=== PATIENT | female | born 1940 | race Caucasian/White ===

== ENCOUNTER 2017-12-01 15:38 | Emergency (ER) | payer MEDICARE, OTHER, SELFPAY ==
[2017-12-01 15:48] VITALS: BP 135/86; PULSE 88; RESP 18; TEMP 36.8; O2SAT 96; BMI 15.4
--- NOTE | 2017-12-01 16:12 | XR_ITS ---
XR chest 2V HISTORY: Shortness of air ITS.REASON: SOA ORDERING PHYSICIAN: Doreen Ventura MD PATIENT AGE: 77 years COMPARISON: 11/12/2016 FINDINGS: The cardiomediastinal silhouette and pulmonary vascularity are within normal limits. COPD. Clips in the right chest wall.. No lobar consolidation or collapse. There is a bone plate over the proximal left humerus. There is wedging involving T7 unchanged from previous chest CT of 11/13/2016. IMPRESSION: COPD, no change with no acute finding
[2017-12-01 16:55] LABS: Lactic Acid 3.3 mmol/L (0.4-2.0)
--- NOTE | 2017-12-01 16:56 | [facility].EDGENADL ---
ED Disposition Clinical Impression: Anorexia, Grief reaction, Dehydration, UTI (urinary tract infection), Dementia Disposition: Home, Self-Care Condition on Discharge: Fair Additional Instructions: 1- drink plenty of gotrade. 2- start abx. 3- return if not better for admission as we discussed. Referrals: Mac Mitchell MD [Primary Care Provider] - - Critical Care Critical Care Time: No Attestation: On 12/01/17, the high probability of a clinically significant, sudden or life threatening deterioration of the following system(s) required my full and direct attention, intervention and personal management. The time I documented below is in addition to time spent performing reported procedures but includes the following listed in this critical care notation. Medical Decision Making - Medical Records Medical records reviewed: Yes: I reviewed the patient's medical records. Vital Signs: 12/01/17 15:48 Temperature 98.3 F Temperature Source Oral Pulse Rate [Right Brachial] 88 Respiratory Rate 18 Blood Pressure [Right Arm] 135/86 Blood Pressure Mean [Right Arm] 102 Blood Pressure Source [Right Arm] Automatic Cuff Blood Pressure Position [Right Arm] Sitting 02 Sat by Pulse Oximetry 96 Oxygen Delivery Method Room Air - Lab Data Lab Results 12/01/17 14:11: WBC 10.6, RBC 4.42, Hgb 14.4, Hct 44.2, MCV 100.0 H, MCH 32.6 H, MCHC 32.6, RDW 13.3, Plt Count 310, MPV 7.8, Neut % (Auto) 73.3, Lymph % (Auto) 18.2, [place] % (Auto) 4.7, Eos % (Auto) 3.4, Baso % (Auto) 0.4, Neut # (Auto) 7.8, Lymph # (Auto) 1.9, [place] # (Auto) 0.5, Eos # (Auto) 0.4, Baso # (Auto) 0.0 12/01/17 14:11: Sodium 146 H, Potassium 3.6, Chloride 107, Carbon Dioxide 30, Anion Gap 12.6, BUN 22 H, Creatinine 0.96, Estimated Creat Clear 25, Estimated GFR 57 L, Est GFR ( Amer) 68, Glucose 232 H, Calcium 9.0, Total Bilirubin 0.2, AST 13 L, ALT 19, Alkaline Phosphatase 60, Total Creatine Kinase 27, CK-MB (CK-2) 0.5, CK-MB (CK-2) Rel Index 1.9, Troponin I < 0.02, Total Protein 7.0, Albumin 3.6, Globulin 3.4 H, Albumin/Globulin Ratio 1.1 12/01/17 14:11: Lactic Acid 3.3 H 12/01/17 14:50: Urine Color Yellow, Urine Appearance Cloudy, Urine pH 6.5, Ur Specific [place] 1.025, Urine Protein Trace, Urine Glucose (UA) Trace, Urine Ketones Trace, Urine Blood Negative, Urine Nitrate Negative, Urine Bilirubin Negative, Urine Urobilinogen 0.2, Ur Leukocyte Esterase 1+ A, Urine WBC 5-10, Ur Squamous Epith Cells 10-20, Urine Bacteria 4+ 12/01/17 18:27: Lactic Acid Fup @ 4Hr 0.7 Result diagrams: 12/01/17 14:11 12/01/17 14:11 Orders (Tests/Meds): ED MEDICATIONS Discontinued Medications Generic Name Dose Route Start Last Admin Trade Name Corbin PRN Reason Stop Dose Admin Ceftriaxone Sodium 1 gm/ 50 mls @ 100 mls/hr 12/01/17 18:12 12/01/17 18:57 Sodium Chloride IV 12/01/17 18:41 100 mls/hr ONCE ONE Administration ORDERS Category Date Time Status Blood Culture Stat Micro 12/01/17 14:11 Received Urine Culture Stat Micro 12/01/17 14:50 Received - ECG Data Tracing #1 Normal sinus rhythm 73/min baseline artifact no acute findings unchanged from prior EKG on August 2011. ECG initial impression date: 12/01/17 ECG initial impression time: 16:58 - Samuel Inquiry Pt receiving controlled substance: No Samuel was queried for this patient: No Medical Decision Making Narrative: I did discuss the abnormal lab results with the patient her boyfriend and her son. Although the family was in favor of keeping her the patient refused to be admitted. Later on the son informed me that that she had dementia and she forgets to eat, recently she has lost her mother and she was in the home unaware of the situation. With 2 days of admission will not fix her anorexia problem. He was given IV fluids and started on a gram of antibiotics. They will keep her company and encourage her to eat. I Advised him to bring her back for admission if
[2017-12-01 16:57] LABS: Microscopic, Urine URINE MICROSCOPIC (MICROSCOPIC)
[2017-12-01 16:57] LABS: Alanine Aminotransferase 19 U/L (12-78); Albumin Level 3.6 gm/dL (3.4-5.0); Albumin/Globulin Ratio 1.1 (1.1-1.8); Alkaline Phosphatase 60 U/L (46-116); Anion Gap 12.6 mEq/L (5-15); Aspartate Amino Transferase 13 U/L (15-37); Basophils % 0.4 % (0.1-2.0); Bilirubin,Total 0.2 mg/dL (0.2-1.0); Blood Urea Nitrogen 22 mg/dL (7-18); CKMB Relative Index 1.9 U/L (0-4.0); Carbon Dioxide 30 mmol/L (21.0-32.0); Chloride 107 mmol/L (98-107); Creatine Kinase 27 U/L (26-192); Creatine Kinase MB 0.5 mg/ml (0.0-3.6); Creatinine Clearance Estimated 25 mL/min (0-300); Creatinine,Serum 0.96 mg/dL (0.55-1.02); Eosinophils # 0.4 K/mm3 (0.0-0.4); Eosinophils % 3.4 % (0.1-12.0); Estimated Glomerular Filt Rate 57 ml/min (>60); GFR (African American) 68 ML/MIN (>60); Globulin 3.4 gm/dl (1.3-3.2); Glucose 232 mg/dL (74-106); Hematocrit 44.2 % (37.0-47.0); Hemoglobin 14.4 g/dL (12.2-16.2); Lymphocytes # 1.9 K/mm3 (0.7-4.5); Lymphocytes % 18.2 K/mm3 (10-50); Mean Corpuscular HGB Conc 32.6 g/dL (31.8-35.4); Mean Corpuscular Hemoglobin 32.6 pg (27.0-31.2); Mean Platelet Volume 7.8 fl (7.4-10.4); Monocytes # 0.5 K/mm3 (0.1-1.0); Monocytes % 4.7 % (1.7-9.3); Neutrophils # 7.8 K/mm3 (1.8-7.8); Neutrophils % 73.3 % (37.0-80.0); Platelet Count 310 K/mm3 (142-424); Potassium 3.6 mmoL/L (3.5-5.1); Red Blood Count 4.42 M/mm3 (4.20-5.40); Red Cell Distribution Width 13.3 % (11.5-17.5); Reflex Lactic Add Lactic Reflex; Sodium 146 mmol/L (136-145); Troponin I < 0.02 ng/ml (0.00-0.06); White Blood Count 10.6 K/mm3 (4.8-10.8)
--- NOTE | 2017-12-01 16:59 | ED_ITS ---
ED Disposition Clinical Impression: Anorexia, Grief reaction, Dehydration, UTI (urinary tract infection), Dementia Disposition: Home, Self-Care Condition on Discharge: Fair Additional Instructions: 1- drink plenty of gotrade. 2- start abx. 3- return if not better for admission as we discussed. Referrals: Mac Mitchell MD [Primary Care Provider] - - Critical Care Critical Care Time: No Attestation: On 12/01/17, the high probability of a clinically significant, sudden or life threatening deterioration of the following system(s) required my full and direct attention, intervention and personal management. The time I documented below is in addition to time spent performing reported procedures but includes the following listed in this critical care notation. Medical Decision Making - Medical Records Medical records reviewed: Yes: I reviewed the patient's medical records. Vital Signs: 12/01/17 15:48 Temperature 98.3 F Temperature Source Oral Pulse Rate [Right Brachial] 88 Respiratory Rate 18 Blood Pressure [Right Arm] 135/86 Blood Pressure Mean [Right Arm] 102 Blood Pressure Source [Right Arm] Automatic Cuff Blood Pressure Position [Right Arm] Sitting 02 Sat by Pulse Oximetry 96 Oxygen Delivery Method Room Air - Lab Data Lab Results 12/01/17 14:11: WBC 10.6, RBC 4.42, Hgb 14.4, Hct 44.2, MCV 100.0 H, MCH 32.6 H , MCHC 32.6, RDW 13.3, Plt Count 310, MPV 7.8, Neut % (Auto) 73.3, Lymph % (Auto ) 18.2, [place] % (Auto) 4.7, Eos % (Auto) 3.4, Baso % (Auto) 0.4, Neut # (Auto) 7.8, Lymph # (Auto) 1.9, [place] # (Auto) 0.5, Eos # (Auto) 0.4, Baso # (Auto) 0.0 12/01/17 14:11: Sodium 146 H, Potassium 3.6, Chloride 107, Carbon Dioxide 30, Anion Gap 12.6, BUN 22 H, Creatinine 0.96, Estimated Creat Clear 25, Estimated GFR 57 L, Est GFR ( Amer) 68, Glucose 232 H, Calcium 9.0, Total Bilirubin 0.2, AST 13 L, ALT 19, Alkaline Phosphatase 60, Total Creatine Kinase 27, CK-MB (CK-2) 0.5, CK-MB (CK-2) Rel Index 1.9, Troponin I < 0.02, Total Protein 7.0, Albumin 3.6, Globulin 3.4 H, Albumin/Globulin Ratio 1.1 12/01/17 14:11: Lactic Acid 3.3 H 12/01/17 14:50: Urine Color Yellow, Urine Appearance Cloudy, Urine pH 6.5, Ur Specific [place] 1.025, Urine Protein Trace, Urine Glucose (UA) Trace, Urine Ketones Trace, Urine Blood Negative, Urine Nitrate Negative, Urine Bilirubin Negative, Urine Urobilinogen 0.2, Ur Leukocyte Esterase 1+ A, Urine WBC 5-10, Ur Squamous Epith Cells 10-20, Urine Bacteria 4+ 12/01/17 18:27: Lactic Acid Fup @ 4Hr 0.7 Result diagrams: 12/01/17 14:11 12/01/17 14:11 Orders (Tests/Meds): ED MEDICATIONS Discontinued Medications Generic Name Dose Route Start Last Admin Trade Name Corbin PRN Reason Stop Dose Admin Ceftriaxone Sodium 1 gm/ 50 mls @ 100 mls/hr 12/01/17 18:12 12/01/17 18:57 Sodium Chloride IV 12/01/17 18:41 100 mls/hr ONCE ONE Administration ORDERS Category Date Time Status Blood Culture Stat Micro 12/01/17 14:11 Received Urine Culture Stat Micro 12/01/17 14:50 Received - ECG Data Tracing #1 Normal sinus rhythm 73/min baseline artifact no acute findings unchanged from prior EKG on August 2011. ECG initial impression date: 12/01/17 ECG initial impression time: 16:58 - Samuel Inquiry Pt receiving controlled substance: No Samuel was queried for this patient: No
[2017-12-01 17:06] LABS: Appearance,Urine CLOUDY (Clear); Bilirubin,Urine Negative (Negative); Blood, Urine Negative (Negative); Color,Urine YELLOW (Yellow); Glucose,Urine (UA) TRACE (Negative); Ketones,Urine TRACE (Negative); Leukocyte Esterase,Urine 1+ (Negative); Nitrate,Urine Negative (Negative); PH,Urine 6.5 (5.0-8.5); Protein,Urine TRACE (Negative); Specific Gravity, Urine 1.025 (1.005-1.030); Urobilinogen,Urine 0.2 EU/dl (0.2)
[2017-12-01 17:24] LABS: Bacteria,Urine 4+ /lpf
[2017-12-01 18:49] LABS: Lactic Acid Follow Up (RFLX 1) 0.7 (0.4-2.0)
[2017-12-01 19:34] VITALS: BP 146/81; PULSE 68; RESP 16; TEMP 36.9; O2SAT 99
== END 2017-12-01 19:35 | disposition home or self-care (01) ==
PROVIDERS: Emergency Provider Emergency Medicine; Family Provider Internal Medicine Adolescent Medicine; PCP Internal Medicine Adolescent Medicine
DX: E86.0 Dehydration (principal); R63.0 Anorexia; F43.20 Adjustment disorder, unspecified; N39.0 Urinary tract infection, site not specified; F03.90 Unspecified dementia, unspecified severity, without behavioral disturbance, psychotic disturbance, mood disturbance, and anxiety; J44.9 Chronic obstructive pulmonary disease, unspecified; I10 Essential (primary) hypertension
CPT/HCPCS: 36415; 71046; 80053; 81001; 82550; 82553; 83605; 84484; 85025; 87040; 87077; 87086; 87186; 93005; 96365; 96366; 99282

== ENCOUNTER 2018-02-08 17:14 | Inpatient (IN) ==
--- NOTE | 2018-02-08 17:51 | Emergency Department Note ---
ED Disposition Clinical Impression: Partial small bowel obstruction Disposition: Still a Patient Condition on Discharge: Good Referrals: Mac Mitchell MD [Primary Care Provider] - - Critical Care Critical Care Time: No Attestation: On 02/08/18, the high probability of a clinically significant, sudden or life threatening deterioration of the following system(s) required my full and direct attention, intervention and personal management. The time I documented below is in addition to time spent performing reported procedures but includes the following listed in this critical care notation. Medical Decision Making - Samuel Inquiry Pt receiving controlled substance: No Vital Signs: 02/08/18 17:29 02/08/18 19:13 Temperature 98.1 F Temperature Source Oral Pulse Rate [Right Brachial] 85 84 Respiratory Rate 16 18 Blood Pressure [Right Arm] 110/54 118/60 Blood Pressure Mean [Right Arm] 72 79 Blood Pressure Source [Right Arm] Automatic Cuff Automatic Cuff Blood Pressure Position [Right Arm] Sitting Sitting 02 Sat by Pulse Oximetry 96 97 Oxygen Delivery Method Room Air Room Air - Lab Data Lab Results 02/08/18 17:45: WBC 9.2, RBC 4.30, Hgb 13.8, Hct 43.8, MCV 101.8 H, MCH 32.1 H, MCHC 31.5 L, RDW 12.8, Plt Count 321, MPV 7.8, Neut % (Auto) 57.2, Lymph % (Auto ) 30.7, [place] % (Auto) 5.0, Eos % (Auto) 6.5, Baso % (Auto) 0.5, Neut # (Auto) 5.3, Lymph # (Auto) 2.8, [place] # (Auto) 0.5, Eos # (Auto) 0.6 H, Baso # (Auto) 0.1 02/08/18 17:45: Sodium 138, Potassium 3.6, Chloride 99, Carbon Dioxide 28, Anion Gap 14.6, BUN 9, Creatinine 0.86, Estimated Creat Clear 26, Estimated GFR 64, Est GFR ( Amer) 78, Glucose 218 H, Calcium 9.4, Total Bilirubin 0.1 L , AST 20, ALT 11 L, Alkaline Phosphatase 83, Total Protein 7.8, Albumin 4.1, Globulin 3.7 H, Albumin/Globulin Ratio 1.1, Amylase 51, Lipase 90 02/08/18 17:45: Total Creatine Kinase 59, CK-MB (CK-2) 3.3 D, CK-MB (CK-2) Rel Index 5.6 H, Troponin I < 0.02 Result diagrams: 02/08/18 17:45 02/08/18 17:45 Orders (Tests/Meds): ORDERS Category Date Time Status CT abdomen pelvis w con Stat Cat Scan 02/08/18 17:44 Taken Urinalysis-Acute [Urinalysis and Microscopic] Stat Lab 02/08/18 17:44 Ordered - CT Data CT Scan: Abdomen, Pelvis Time Received: 19:[address] Reviewed: Yes: I discussed the CT results w/the radiologist, I have viewed the radiologist's interpretation Findings Narrative: CT scan interpreted by [facility] radiologist. Faxed report received and reviewed: Findings suspicious for early or partial small bowel obstruction. - ECG Data Tracing #1 EKG interpreted by Thomas Carter MD: Rhythm: sinus Rate: 69 [place]: normal Ectopy: none Conduction: normal ST Segment Changes: none T Wave Changes: none Q Waves: none No evidence of acute ischemia or injury Baseline artifact present, but I consider the EKG adequate for accurate interpretation. Medical Decision Narrative: 8:00 PM: Patient states pain is mild. No vomiting or distention. I have discussed the case with Dr. Petersen for Dr. Mitchell who agrees to admit the patient to the hospital. We discussed the patient's clinical information, including history, exam, laboratory and radiology results and ED course. Per hospital procedure, I will write temporary bridge inpatient orders on the patient. Specific orders requested by the admitting physician: No NG tube at this time, clear liquids and IV fluids General Adult HPI - General Chief complaint: Abdominal Pain Stated complaint: abd pain Time Seen by Provider: 02/08/18 17:51 Mode of Arrival: Ambulatory Source of Information: Patient Limitations: Altered Mental Status Description of Symptoms (Recalled from ER Triage Doc. by RN): Pt reports abd pain that started an hour ago. feels like "cramping". Denies any n/v/d. Reports hasn't had a bm for 2-3 days. - History of Present Illness HPI narrative: The patient has dementia. History supplemented by family. They report that she has been complaining of abdominal pain in the middle of her abdomen and below the umbilicus for about 2 hours. No vomiting or diarrhea. They do not know when her last bowel movement was. No urinary symptoms. No fever. The patient currently denies pain. - Related Data Home Medications Medication Instructions Recorded Confirmed levothyroxine 50 mcg tablet 1 tab PO DAILY 30 Days #30 11/26/17 02/08/18 meclizine 25 mg tablet 25 mg PO BID 11/26/17 02/08/18 verapamil ER (SR) 120 mg 1 tab PO DAILY 30 Days #30 11/26/17 02/08/18 tablet,extended release Memantine HCl 10 mg PO BID MDD 1 12/01/17 02/08/18 carbidopa 25 mg-levodopa 100 mg 1 tab PO DAILY 30 Days #60 12/25/17 02/08/18 tablet mirtazapine 30 mg tablet 30 mg PO DAILY 30 Days #30 12/25/17 02/08/18 Allergies Allergy/AdvReac Type Severity Reaction Status Date / Time promethazine [PROMETHAZINE] Allergy Mild Verified 12/25/17 16:24 [facility] History I have reviewed the patient's past medical history: Yes Medical History: Reports:: Asthma, Chronic Obstructive Pulmonary Disease (COPD) , Hypertension Comment: Memory loss Laterality Cases: Right: Lumpectomy Other Surgeries: Yes: Other Comment: Back - Social History Smoking Status: Current every day smoker Tobacco Type: cigarettes Alcohol Intake: never Alcohol Intake Frequency:: a few times a month Substance Use Type: denies use Housing: house Household Members: significant other - Psychiatric History Expresses thoughts of harming self/others: None Suicide Plan Description: No Plan Family Hx:: Cancer Comment: alzheimers ROS Obtained: Yes All systems reviewed & no additional complaints - Constitutional Constitutional: Denies fever(s) - Gastrointestinal Gastrointestingal: Reports: abdominal pain. Denies: diarrhea, vomiting - Genitourinary Female Genitourinary: Denies difficulty voiding Physical Exam - General General appearance: alert, in no apparent distress - Head Head exam: atraumatic, normocephalic, normal inspection - Eye Eye exam: Present: normal appearance, PERRL, EOMI - ENT ENT exam: Present: normal exam, normal oropharynx, mucous membranes moist, TM's normal bilaterally, normal external ear exam - Neck Neck exam: Present: normal inspection, full ROM, trachea midline. Absent: meningismus, lymphadenopathy - Chest Chest inspection: Present: normal inspection, symmetric chest wall rise. Absent : tenderness - Respiratory Respiratory exam: Present: normal lung sounds bilaterally. Absent: respiratory distress - Cardiovascular Cardiovascular exam: Present: regular rate, normal rhythm. Absent: JVD - Abdominal Exam Abdominal exam: Present: soft, tenderness, normal bowel sounds. Absent: distention, guarding Abdominal tenderness: Present: RLQ, LLQ, suprapubic - Extremities Exam Extremities exam: Present: normal inspection, full ROM, normal capillary refill. Absent: calf tenderness - Back Exam Back exam: Present: normal inspection. Absent: tenderness - Neurological Exam Neurological exam: Present: alert - Psychiatric Psychiatric exam: Present: normal affect, normal mood - Skin Skin exam: Present: warm, dry, intact, normal color - Lymphatic Lymphatic Findings: no adenopathy
[2018-02-08 18:04] LABS: Basophils # 0.1 K/mm3 (0-0.2); Basophils % 0.5 % (0.1-2.0); Eosinophils # 0.6 K/mm3 (0.0-0.4); Eosinophils % 6.5 % (0.1-12.0); Hematocrit 43.8 % (37.0-47.0); Hemoglobin 13.8 g/dL (12.2-16.2); Lymphocytes # 2.8 K/mm3 (0.7-4.5); Lymphocytes % 30.7 K/mm3 (10-50); Mean Corpuscular HGB Conc 31.5 g/dL (31.8-35.4); Mean Corpuscular Hemoglobin 32.1 pg (27.0-31.2); Mean Corpuscular Volume 101.8 fl (81-99); Mean Platelet Volume 7.8 fl (7.4-10.4); Monocytes # 0.5 K/mm3 (0.1-1.0); Neutrophils # 5.3 K/mm3 (1.8-7.8); Neutrophils % 57.2 % (37.0-80.0); Platelet Count 321 K/mm3 (142-424); Red Cell Distribution Width 12.8 % (11.5-17.5); White Blood Count 9.2 K/mm3 (4.8-10.8)
[2018-02-08 18:11] LABS: Albumin Level 4.1 gm/dL (3.4-5.0); Albumin/Globulin Ratio 1.1 (1.1-1.8); Anion Gap 14.6 mEq/L (5-15); Bilirubin,Total 0.1 mg/dL (0.2-1.0); Calcium 9.4 mg/dL (8.5-10.1); Globulin 3.7 gm/dl (1.3-3.2); Potassium 3.6 mmoL/L (3.5-5.1); Total Protein,Serum 7.8 gm/dL (6.4-8.2)
[2018-02-08 19:06] LABS: Creatine Kinase 59 U/L (26-192)
[2018-02-08 23:35] LABS: Microscopic, Urine URINE MICROSCOPIC (MICROSCOPIC)
[2018-02-08 23:38] LABS: Appearance,Urine CLEAR (Clear); Bilirubin,Urine Negative (Negative); Blood, Urine Negative (Negative); Color,Urine YELLOW (Yellow); Glucose,Urine (UA) Negative (Negative); Ketones,Urine Negative (Negative); Leukocyte Esterase,Urine Negative (Negative); Protein,Urine Negative (Negative); Specific Gravity, Urine <= 1.005 (1.005-1.030); Urobilinogen,Urine 0.2 EU/dl (0.2)
[2018-02-08 23:40] LABS: Amorphous Sediment,Urine Trace /lpf; WBC,Urine Occasional #/hpf (0-3)
--- NOTE | 2018-02-09 08:47 | History & Physical Report ---
*Admission Date: 02/09/18 *Chief complaint: Poor p.o. intake *History of present illness: 77-year-old white female with COPD, significant dementia, brought to the emergency department by her family with diminished p.o. intake and functional decline. Found to have mild abdominal pain, abnormal labs, and CT scan revealed evidence of partial small bowel obstruction. This morning she feels better, has tolerated clear liquids without much problem. [facility] History I have reviewed the patient's past medical history: Yes Medical History: Reports:: Asthma, Cancer (BREAST), Chronic Obstructive Pulmonary Disease (COPD), Hypertension Denies:: Diabetes Mellitus Type 1, Diabetes Mellitus Type 2, MRSA Other Medical History: Reports: Chemotherapy, Radiation Therapy Laterality Cases: Right: Lumpectomy Other Surgeries: Yes: Other Amputation: No - *Social History Educational Level: Completed College Smoking Status: Former smoker Tobacco Type: cigarettes Alcohol Intake: current Alcohol Intake Frequency:: holidays/special occasions only Substance Use Type: denies use Occupational Status: retired Housing: house Household Members: significant other - Psychiatric History Expresses thoughts of harming self/others: None Suicide Plan Description: No Plan *Family Hx:: Cancer, Coronary Artery Disease, Heart Attack, Hyperlipidemia, Hypertension, Stroke, Thyroid Disorder Review of Systems - Review of Systems Review of systems:: unable to obtain, other, pertinent systems reviewed and negative unless documented below Meds Home Medications Medication Instructions Recorded Confirmed Type levothyroxine 50 mcg tablet 1 tab PO DAILY 30 Days #30 11/26/17 02/08/18 History meclizine 25 mg tablet 25 mg PO BID 11/26/17 02/08/18 History verapamil ER (SR) 120 mg 1 tab PO DAILY 30 Days #30 11/26/17 02/08/18 History tablet,extended release carbidopa 25 mg-levodopa 100 mg 1 tab PO DAILY 30 Days #60 12/25/17 02/08/18 History tablet Allergies Allergy/AdvReac Type Severity Reaction Status Date / Time promethazine [PROMETHAZINE] Allergy Mild Verified 12/25/17 16:24 Exam Vital signs and Labs for Last 24 Hours: Temp Pulse Resp BP Pulse Ox 97.9 F 63 16 131/64 95 02/09/18 04:00 02/09/18 04:00 02/09/18 04:00 02/09/18 04:00 02/09/18 04:00 Laboratory Results - last 24 hr 02/08/18 23:25: Urine Color Yellow, Urine Appearance Clear, Urine pH 7.0, Ur Specific [place] <= 1.005, Urine Protein Negative, Urine Glucose (UA) Negative, Urine Ketones Negative, Urine Blood Negative, Urine Nitrate Negative, Urine Bilirubin Negative, Urine Urobilinogen 0.2, Ur Leukocyte Esterase Negative, Urine WBC Occasional, Amorphous Sediment Trace I & O for Last 24 hours: Intake & Output 02/06/18 02/07/18 02/08/18 02/09/18 11:59 11:59 11:59 11:59 Intake Total 714 / 714 Output Total 600 / 600 Balance 114 / 114 Narrative: Patient is frail-appearing is normal, cachectic. Lungs have poor air movement but are clear, heart rate regular, abdomen soft, slightly doughy but no tenderness, no masses. No extremity edema. H&P: Result - Labs Labs: Urine 02/08/18 Range/Units 23:25 Urine Color Yellow (Yellow) Urine Appearance Clear (Clear) Urine pH 7.0 (5.0-8.5) Ur Specific [place] <= 1.005 (1.005-1.030) Urine Protein Negative (Negative) Urine Glucose (UA) Negative (Negative) Assessment and Plan (1) Partial small bowel obstruction Current visit: Yes Status: Acute Category: Medical Code(s): K56.600 - Partial intestinal obstruction, unspecified as to cause (2) Anorexia Current visit: No Status: Acute Category: Medical Code(s): R63.0 - Anorexia (3) Dehydration Current visit: No Status: Acute Category: Medical Code(s): E86.0 - Dehydration (4) Dementia Current visit: No Status: Acute Category: Medical Code(s): F03.90 - Unspecified dementia without behavioral disturbance (5) Grief reaction Current visit: No Status: Acute Category: Medical Code(s): F43.20 - Adjustment disorder, unspecified (6) UTI (urinary tract infection) Current visit: No Status: Acute Category: Medical Code(s): N39.0 - Urinary tract infection, site not specified - Assessment and plan all Dx Assessment and Plan for all problems:: Agree with admission, continue clear liquids, await final radiology report. Labs tomorrow morning.
--- NOTE | 2018-02-09 15:11 | Pharmacy Consult Notes ---
[facility] Pharmacy VTE Monitoring - Patient Demographics Admission date: 02/08/18 Report Date: 02/09/18 Time: 15:10 Allergies/Adverse Reactions: Patient Allergies promethazine [PROMETHAZINE] Allergy (Mild, Verified 12/25/17 16:24) Height: 1.47 m Weight: 35.125 kg Patient Problems: Current Active Problems Partial small bowel obstruction (Acute) - VTE Risk Labs: VTE Related Lab Results Hgb 13.8 g/dL (12.2-16.2) 02/08/18 17:45 Hct 43.8 % (37.0-47.0) 02/08/18 17:45 Plt Count 321 K/mm3 (142-424) 02/08/18 17:45 BUN 9 mg/dL (7-18) 02/08/18 17:45 Creatinine 0.86 mg/dL (0.55-1.02) 02/08/18 17:45 Estimated Creat Clear 26 mL/min (0-300) 02/08/18 17:45 VTE Score: 4 VTE Risk Level: Low Risk - Prophylaxis VTE Prophylaxis Ordered?: Yes Types of VTE Prophylaxis: TEDS Knee High Location of Applied Device: Bilateral Lower Extremeties
[2018-02-10 06:17] LABS: Basophils % 0.3 % (0.1-2.0); Eosinophils # 0.8 K/mm3 (0.0-0.4); Hemoglobin 12.3 g/dL (12.2-16.2); Lymphocytes # 2.2 K/mm3 (0.7-4.5); Lymphocytes % 22.2 K/mm3 (10-50); Mean Corpuscular HGB Conc 32.3 g/dL (31.8-35.4); Mean Corpuscular Volume 99.2 fl (81-99); Mean Platelet Volume 7.6 fl (7.4-10.4); Monocytes # 0.8 K/mm3 (0.1-1.0); Monocytes % 7.6 % (1.7-9.3); Neutrophils # 6.2 K/mm3 (1.8-7.8); Neutrophils % 61.8 % (37.0-80.0); Platelet Count 258 K/mm3 (142-424); Red Blood Count 3.83 M/mm3 (4.20-5.40); Red Cell Distribution Width 12.7 % (11.5-17.5)
[2018-02-10 06:31] LABS: Anion Gap 7.7 mEq/L (5-15); Bilirubin,Total 0.3 mg/dL (0.2-1.0); Calcium 8.7 mg/dL (8.5-10.1); Globulin 2.9 gm/dl (1.3-3.2); Potassium 3.7 mmoL/L (3.5-5.1); Total Protein,Serum 5.9 gm/dL (6.4-8.2)
--- NOTE | 2018-02-10 08:46 | Progress Note ---
Internal Medicine - PN: Subj *Date: 02/10/18 *Time: 08:44 Interval history: Patient did well with liquids overnight, no vomiting, diarrhea. No fevers. Exam Vital signs and Labs for Last 24 Hours: Temp Pulse Resp BP Pulse Ox 98.2 F 77 20 181/65 94 L 02/10/18 08:00 02/10/18 08:00 02/10/18 08:00 02/10/18 08:00 02/10/18 08:00 Laboratory Results - last 24 hr 02/10/18 05:45: WBC 10.0, RBC 3.83 L, Hgb 12.3, Hct 38.0, MCV 99.2 H, MCH 32.0 H , MCHC 32.3, RDW 12.7, Plt Count 258, MPV 7.6, Neut % (Auto) 61.8, Lymph % (Auto ) 22.2, [place] % (Auto) 7.6, Eos % (Auto) 8.0, Baso % (Auto) 0.3, Neut # (Auto) 6.2, Lymph # (Auto) 2.2, [place] # (Auto) 0.8, Eos # (Auto) 0.8 H, Baso # (Auto) 0.0 02/10/18 05:45: Sodium 139, Potassium 3.7, Chloride 104, Carbon Dioxide 31, Anion Gap 7.7, BUN 3 L D, Creatinine 0.48 L D, Estimated Creat Clear 27, Estimated GFR 126, Est GFR ( Amer) 152 D, Glucose 68 L, Calcium 8.7, Total Bilirubin 0.3, AST 15, ALT 10 L, Alkaline Phosphatase 67, Total Protein 5.9 L, Albumin 3.0 L D, Globulin 2.9, Albumin/Globulin Ratio 1.0 L I & O for Last 24 hours: Intake & Output 02/07/18 02/08/18 02/09/18 02/10/18 11:59 11:59 11:59 11:59 Intake Total 1014 / 1014 1459 / 1459 Output Total 900 / 900 203 / 203 Balance 114 / 114 1256 / 1256 Weight 77 lb 7 oz Narrative: Patient's alert. Remains demented. Heart rate regular, lungs are clear, abdomen soft, bowel sounds noted. Assessment and Plan (1) Partial small bowel obstruction Current visit: Yes Status: Acute Category: Medical Code(s): K56.600 - Partial intestinal obstruction, unspecified as to cause (2) Anorexia Current visit: No Status: Acute Category: Medical Code(s): R63.0 - Anorexia (3) Dehydration Current visit: No Status: Acute Category: Medical Code(s): E86.0 - Dehydration (4) Dementia Current visit: No Status: Acute Category: Medical Code(s): F03.90 - Unspecified dementia without behavioral disturbance (5) UTI (urinary tract infection) Current visit: No Status: Acute Category: Medical Code(s): N39.0 - Urinary tract infection, site not specified - Assessment and plan all Dx Assessment and Plan for all problems:: Overall improving. Restart solid feeds today. Final x-ray report reviewed. Check abdominal series. PT evaluation tomorrow for home safety issues.
[2018-02-11 07:29] LABS: Anion Gap 9.4 mEq/L (5-15); Potassium 3.4 mmoL/L (3.5-5.1)
[2018-02-11 07:47] LABS: Basophils # 0.1 K/mm3 (0-0.2); Basophils % 0.6 % (0.1-2.0); Eosinophils # 0.9 K/mm3 (0.0-0.4); Eosinophils % 10.5 % (0.1-12.0); Hematocrit 37.1 % (37.0-47.0); Hemoglobin 11.9 g/dL (12.2-16.2); Lymphocytes # 2.4 K/mm3 (0.7-4.5); Lymphocytes % 29.6 K/mm3 (10-50); Mean Corpuscular Hemoglobin 31.8 pg (27.0-31.2); Mean Corpuscular Volume 99.4 fl (81-99); Mean Platelet Volume 7.4 fl (7.4-10.4); Monocytes # 0.6 K/mm3 (0.1-1.0); Monocytes % 7.6 % (1.7-9.3); Neutrophils # 4.3 K/mm3 (1.8-7.8); Neutrophils % 51.7 % (37.0-80.0); Platelet Count 255 K/mm3 (142-424); Red Blood Count 3.74 M/mm3 (4.20-5.40); Red Cell Distribution Width 12.7 % (11.5-17.5); White Blood Count 8.3 K/mm3 (4.8-10.8)
--- NOTE | 2018-02-11 08:44 | Progress Note ---
Internal Medicine - PN: Subj *Date: 02/11/18 *Time: 08:43 Interval history: Patient did well with solid diet yesterday. Ate most of her carlson this morning. No vomiting, no diarrhea. Exam Vital signs and Labs for Last 24 Hours: Temp Pulse Resp BP Pulse Ox 98.5 F 71 18 158/55 96 02/11/18 08:00 02/11/18 08:00 02/11/18 08:00 02/11/18 08:00 02/11/18 08:00 Laboratory Results - last 24 hr 02/11/18 07:05: WBC 8.3, RBC 3.74 L, Hgb 11.9 L, Hct 37.1, MCV 99.4 H, MCH 31.8 H, MCHC 32.0, RDW 12.7, Plt Count 255, MPV 7.4, Neut % (Auto) 51.7, Lymph % ( Auto) 29.6, H[place] % (Auto) 7.6, Eos % (Auto) 10.5, Baso % (Auto) 0.6, Neut # ( Auto) 4.3, Lymph # (Auto) 2.4, [place] # (Auto) 0.6, Eos # (Auto) 0.9 H, Baso # ( Auto) 0.1 02/11/18 07:05: Sodium 144, Potassium 3.4 L, Chloride 109 H, Carbon Dioxide 29, Anion Gap 9.4, BUN 4 L D, Creatinine 0.54 L, Estimated Creat Clear 27, Estimated GFR 110, Est GFR ( Amer) 133, Glucose 82 I & O for Last 24 hours: Intake & Output 02/08/18 02/09/18 02/10/18 02/11/18 11:59 11:59 11:59 11:59 Intake Total 1014 / 1014 1459 / 1459 3296 / 3296 Output Total 900 / 900 203 / 203 Balance 114 / 114 1256 / 1256 3296 / 3296 Weight 77 lb 7 oz 77 lb 7 oz Narrative: Patient is alert, pleasant, talkative, remains demented. Lungs are clear, heart rate regular, abdomen is soft. No extremity edema. Assessment and Plan (1) Partial small bowel obstruction Current visit: Yes Status: Acute Category: Medical Code(s): K56.600 - Partial intestinal obstruction, unspecified as to cause (2) Anorexia Current visit: No Status: Acute Category: Medical Code(s): R63.0 - Anorexia (3) Dehydration Current visit: No Status: Acute Category: Medical Code(s): E86.0 - Dehydration (4) Dementia Current visit: No Status: Acute Category: Medical Code(s): F03.90 - Unspecified dementia without behavioral disturbance (5) UTI (urinary tract infection) Current visit: No Status: Acute Category: Medical Code(s): N39.0 - Urinary tract infection, site not specified - Assessment and plan all Dx Assessment and Plan for all problems:: Continue diet, PT evaluation today, consider residential placement if qualifies with PT.
--- NOTE | 2018-02-11 08:56 | Discharge Summary ---
General - General Admission date: 02/08/18 Discharge date: 02/11/18 HPI HPI: 77-year-old white female with COPD, significant dementia, brought to the emergency department by her family with diminished p.o. intake and functional decline. Found to have mild abdominal pain, abnormal labs, and CT scan revealed evidence of partial small bowel obstruction. This morning she feels better, has tolerated clear liquids without much problem. Hospital Course Hospital Course: Patient was admitted, partial small bowel obstruction was suspected, patient was placed on clear liquids and treated conservatively. Did well with this. Improving x-rays were noted, she was advanced with diet and did well. Over the next couple of days she did much nicer with eating, and this morning PT evaluation revealed that she was doing well, no balance problems and was safe he doing her own ADLs. She will be discharged home. Soft mechanical diet will continue. I will see her in my office in 1 week. Objective Vital signs: Temp Pulse Resp BP Pulse Ox 98.5 F 71 18 158/55 96 02/11/18 08:00 02/11/18 08:00 02/11/18 08:00 02/11/18 08:00 02/11/18 08:00 Narrative: Please see discharge physical exam notes from today's progress note Results Labs on day of discharge: Labs from last 24 hours 02/11/18 02/11/18 07:05 07:05 WBC 8.3 RBC 3.74 L Hgb 11.9 L Hct 37.1 MCV 99.4 H MCH 31.8 H MCHC 32.0 RDW 12.7 Plt Count 255 MPV 7.4 Neut % (Auto) 51.7 Lymph % (Auto) 29.6 Reynolds % (Auto) 7.6 Eos % (Auto) 10.5 Baso % (Auto) 0.6 Neut # (Auto) 4.3 Lymph # (Auto) 2.4 Reynolds # (Auto) 0.6 Eos # (Auto) 0.9 H Baso # (Auto) 0.1 Sodium 144 Potassium 3.4 L Chloride 109 H Carbon Dioxide 29 Anion Gap 9.4 BUN 4 L D Creatinine 0.54 L Estimated Creat Clear 27 Estimated GFR 110 Est GFR ( Amer) 133 Glucose 82 DS: Diagnosis - Discharge Diagnosis (1) Partial small bowel obstruction Status: Ruled-out (2) Anorexia Status: Acute (3) Dehydration Status: Acute (4) Dementia Status: Acute (5) UTI (urinary tract infection) Status: Acute Discharge Plan - Patient Discharge Instructions ACTIVITY: Continue current activity DIET: continue same diet - Follow up Plan Follow up with: Mac Mitchell MD [Primary Care Provider] - 1 week Disposition: Home, Self-Retirement Medications: Home Medications Medication Instructions Recorded Confirmed Type levothyroxine 50 mcg tablet 50 mcg PO DAILY 30 Days #30 11/26/17 02/09/18 History meclizine 25 mg tablet 25 mg PO TID 11/26/17 02/09/18 History verapamil ER (SR) 120 mg 120 mg PO DAILY 30 Days #30 11/26/17 02/09/18 History tablet,extended release carbidopa 25 mg-levodopa 100 mg 1 tab PO BID 30 Days #60 12/25/17 02/09/18 History tablet Memantine HCl [Memantine 10mg 10 mg PO BID 02/09/18 02/09/18 History Tablet] Mirtazapine 30 mg PO HS 02/09/18 02/09/18 History Prescriptions/Medication Reconciliation: Continue levothyroxine 50 mcg tablet 50 mcg PO DAILY 30 Days #30 meclizine 25 mg tablet 25 mg PO TID verapamil ER (SR) 120 mg tablet,extended release 120 mg PO DAILY 30 Days #30 carbidopa 25 mg-levodopa 100 mg tablet 1 tab PO BID 30 Days #60 Mirtazapine 30 mg PO HS Memantine HCl [Memantine 10mg Tablet] 10 mg PO BID
== END 2018-02-11 09:30 | disposition home or self-care (01) ==
LOC: ER 17:14 → 2ND 20:46
PROVIDERS: ADMIT Emergency Medicine; ATTEND Internal Medicine Adolescent Medicine

== ENCOUNTER 2018-03-29 16:05 | Observation (INO) ==
[2018-03-29 17:21] LABS: Basophils # 0.1 K/mm3 (0-0.2); Basophils % 0.4 % (0.1-2.0); Eosinophils # 0.4 K/mm3 (0.0-0.4); Eosinophils % 3.1 % (0.1-12.0); Hematocrit 41.1 % (37.0-47.0); Hemoglobin 12.9 g/dL (12.2-16.2); Lymphocytes # 1.4 K/mm3 (0.7-4.5); Lymphocytes % 12.1 K/mm3 (10-50); Mean Corpuscular HGB Conc 31.5 g/dL (31.8-35.4); Mean Corpuscular Hemoglobin 31.2 pg (27.0-31.2); Mean Corpuscular Volume 99.3 fl (81-99); Mean Platelet Volume 7.1 fl (7.4-10.4); Monocytes # 0.5 K/mm3 (0.1-1.0); Neutrophils # 9.5 K/mm3 (1.8-7.8); Neutrophils % 80.4 % (37.0-80.0); Platelet Count 309 K/mm3 (142-424); Red Blood Count 4.14 M/mm3 (4.20-5.40); Red Cell Distribution Width 12.9 % (11.5-17.5); White Blood Count 11.8 K/mm3 (4.8-10.8)
--- NOTE | 2018-03-29 17:48 | History & Physical Report ---
*Admission Date: 03/29/18 *Chief complaint: Weight loss/rectal pain *History of present illness: 77-year-old white female with severe protein calorie malnutrition, cachexia and recent weight loss. She came to my office today with her [id number] and her longtime inspection machine tender who have been caring for her at her home. Complaints include increasing urinary frequency, pain with urination and pain with bowel movements. Her boyfriend reports that she does not like to eat or drink because that means she would have to urinate or defecate and that causes her discomfort. He and her son and [id number] are interested in some type of home care option as she has precipitously declined. Her weight today in my office was 70 pounds, which is a 6 pound weight loss since her exam a couple of weeks ago. Patient herself is continuously afflicted with her severe dementia-other than complaining of rectal pain and urine issues has no complaints of dyspnea or pain otherwise. 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 History of protein calorie malnutrition with severe weight loss which is worsening. Laterality Cases: Right: Lumpectomy Other Surgeries: Yes: Hysterectomy-Partial, Other Amputation: No - *Social History Smoking Status: Former smoker Tobacco Type: cigarettes #Yrs smoked (if former smoker): 5 Alcohol Intake: current Alcohol Intake Frequency:: holidays/special occasions only Substance Use Type: denies use Occupational Status: retired Housing: house Household Members: significant other - Psychiatric History Expresses thoughts of harming self/others: None Suicide Plan Description: No Plan *Family Hx:: Cancer, Coronary Artery Disease, Heart Attack, Hyperlipidemia, Hypertension, Stroke, Thyroid Disorder Review of Systems - Review of Systems Review of systems:: unable to obtain Meds Home Medications Medication Instructions Recorded Confirmed Type levothyroxine 50 mcg tablet 50 mcg PO DAILY 30 Days #30 18 02/09/18 History meclizine 25 mg tablet 25 mg PO TID 11/26/17 02/09/18 History verapamil ER (SR) 120 mg 120 mg PO DAILY 30 Days #30 11/26/17 02/09/18 History tablet,extended release carbidopa 25 mg-levodopa 100 mg 1 tab PO BID 30 Days #60 12/25/17 02/09/18 History tablet Memantine HCl [Memantine 10mg 10 mg PO BID 02/09/18 02/09/18 History Tablet] Mirtazapine 30 mg PO HS 02/09/18 02/09/18 History Allergies Allergy/AdvReac Type Severity Reaction Status Date / Time promethazine [PROMETHAZINE] Allergy Mild Verified 12/25/17 16:24 Exam I & O for Last 24 hours: Intake & Output 03/27/18 03/28/18 03/29/18 03/30/18 11:59 11:59 11:59 11:59 Weight 74 lb Narrative: Patient is frail, cachectic, disoriented to time, place. ENT exam is dry, dentures are in good repair but are loose because of her weight loss. Lungs have poor air movement but are clear. Heart rate regular. Abdomen is tender with swelling in the bilateral lower quadrants consistent with retained stool. She has weight loss evident in her extremities with poor skin turgor. Exam of the rectum shows impacted stool with a very dilated rectum but no evidence of bleeding. Assessment and Plan (1) Fecal impaction Current visit: Yes Status: Acute Category: Medical Code(s): K56.41 - Fecal impaction Significant discomfort. We will admit for disimpaction, fleets enema. (2) Dysuria Current visit: Yes Status: Acute Category: Medical Code(s): R30.0 - Dysuria Check urine sample but I think her dysuria is probably related to fecal impaction pushing on the bladder and creating frequency symptoms. (3) Cachexia Current visit: Yes Status: Acute Category: Medical Code(s): R64 - Cachexia Patient continues to lose weight in spite of appetite stimulants, home supplements and good family care. I think this is a sign of her terminal dementia. See notes below Re: Hospice consultation (4) Anorexia Current visit: No Status: Acute Category: Medical Code(s): R63.0 - Anorexia (5) Dehydration Current visit: No Status: Acute Category: Medical Code(s): E86.0 - Dehydration Cautious fluid resuscitation. Check labs as noted (6) Dementia Current visit: No Status: Acute Category: Medical Code(s): F03.90 - Unspecified dementia without behavioral disturbance Significant and late stage dementia. I believe prognosis is poor. Her cachexia and weight loss or ominous signs. Her family and her boyfriend are interested in hospice consultation and I believe this is very appropriate.
--- NOTE | 2018-03-30 07:25 | Progress Note ---
Internal Medicine - PN: Subj *Date: 03/30/18 *Time: 07:24 Interval history: Patient slept intermittently overnight. Nursing reports that they were able to disimpact part of her impaction but that there is still some stool in the rectum. Patient denies any pain this morning. Exam Vital signs and Labs for Last 24 Hours: Temp Pulse Resp BP Pulse Ox 98.4 F 67 18 162/49 95 03/30/18 03:50 03/30/18 03:50 03/30/18 03:50 03/30/18 03:50 03/30/18 03:50 Laboratory Results - last 24 hr 03/29/18 17:10: WBC 11.8 H, RBC 4.14 L, Hgb 12.9, Hct 41.1, MCV 99.3 H, MCH 31.2 , MCHC 31.5 L, RDW 12.9, Plt Count 309, MPV 7.1 L, Neut % (Auto) 80.4 H, Lymph % (Auto) 12.1, [place] % (Auto) 4.0, Eos % (Auto) 3.1, Baso % (Auto) 0.4, Neut # ( Auto) 9.5 H, Lymph # (Auto) 1.4, [place] # (Auto) 0.5, Eos # (Auto) 0.4, Baso # ( Auto) 0.1 03/29/18 17:10: Sodium 143, Potassium 4.0, Chloride 102, Carbon Dioxide 25, Anion Gap 20.0 H, BUN 14, Creatinine 0.67, Estimated Creat Clear 25, Estimated GFR 86, Est GFR ( Amer) 104, Glucose 75, Calcium 10.0 I & O for Last 24 hours: Intake & Output 03/27/18 03/28/18 03/29/18 03/30/18 11:59 11:59 11:59 11:59 Intake Total 986 / 986 Output Total 450 / 450 Balance 536 / 536 Weight 76 lb 6 oz Narrative: She looks well and is in no distress. She is confused. Abdomen is thin, soft, nontender Assessment and Plan (1) Fecal impaction Current visit: Yes Status: Acute Category: Medical Code(s): K56.41 - Fecal impaction (2) Dysuria Current visit: Yes Status: Acute Category: Medical Code(s): R30.0 - Dysuria (3) Cachexia Current visit: Yes Status: Acute Category: Medical Code(s): R64 - Cachexia (4) Anorexia Current visit: No Status: Acute Category: Medical Code(s): R63.0 - Anorexia (5) Dehydration Current visit: No Status: Acute Category: Medical Code(s): E86.0 - Dehydration (6) Dementia Current visit: No Status: Acute Category: Medical Code(s): F03.90 - Unspecified dementia without behavioral disturbance - Assessment and plan all Dx Assessment and Plan for all problems:: Continue methods of disimpaction. Once patient is more comfortable she will be discharged home with hospice
--- NOTE | 2018-03-30 08:30 | Pharmacy Consult Notes ---
[facility] Pharmacy VTE Monitoring - Patient Demographics Admission date: 03/29/18 Report Date: 03/30/18 Time: 08:30 Allergies/Adverse Reactions: Patient Allergies promethazine [PROMETHAZINE] Allergy (Mild, Verified 12/25/17 16:24) Height: 1.52 m Weight: 34.643 kg Patient Problems: Current Active Problems Fecal impaction (Acute) Dysuria (Acute) Cachexia (Acute) - VTE Risk Labs: VTE Related Lab Results Hgb 12.9 g/dL (12.2-16.2) 03/29/18 17:10 Hct 41.1 % (37.0-47.0) 03/29/18 17:10 Plt Count 309 K/mm3 (142-424) 03/29/18 17:10 BUN 14 mg/dL (7-18) 03/29/18 17:10 Creatinine 0.67 mg/dL (0.55-1.02) 03/29/18 17:10 Estimated Creat Clear 25 mL/min (0-300) 03/29/18 17:10 Was VTE Risk Assessment Performed: No VTE Score: 1 VTE Risk Level: Very Low Risk - Prophylaxis VTE Prophylaxis Ordered?: Yes Types of VTE Prophylaxis: TEDS Knee High Location of Applied Device: Bilateral Lower Extremeties
[2018-03-30 17:37] LABS: Microscopic, Urine URINE MICROSCOPIC (MICROSCOPIC)
[2018-03-30 17:39] LABS: Appearance,Urine CLEAR (Clear); Bilirubin,Urine Negative (Negative); Blood, Urine Negative (Negative); Color,Urine YELLOW (Yellow); Glucose,Urine (UA) Negative (Negative); Ketones,Urine Negative (Negative); Leukocyte Esterase,Urine Negative (Negative); PH,Urine 7.5 (5.0-8.5); Protein,Urine Negative (Negative); Specific Gravity, Urine <= 1.005 (1.005-1.030); Urobilinogen,Urine 0.2 EU/dl (0.2)
[2018-03-30 17:50] LABS: Bacteria,Urine 1+ /lpf; WBC,Urine Occasional #/hpf (0-3)
[2018-03-31 04:28] VITALS: BP 166/68
--- NOTE | 2018-03-31 07:03 | Discharge Summary ---
General - General Admission date:: 03/29/18 Discharge date: 03/31/18 HPI HPI: 77-year-old white female with severe protein calorie malnutrition, cachexia and recent weight loss. She came to my office today with her [id number] and her longtime central sterile technician who have been caring for her at her home. Complaints include increasing urinary frequency, pain with urination and pain with bowel movements. Her boyfriend reports that she does not like to eat or drink because that means she would have to urinate or defecate and that causes her discomfort. He and her son and [id number] are interested in some type of home care option as she has precipitously declined. Her weight today in my office was 70 pounds, which is a 6 pound weight loss since her exam a couple of weeks ago. Patient herself is continuously afflicted with her severe dementia-other than complaining of rectal pain and urine issues has no complaints of dyspnea or pain otherwise. Hospital Course Hospital Course: Patient was admitted and measures were taken to disimpact the patient. Over the phone admission she did produce some small hard stools but complained of significant pain with attempts to manually disimpact her. She had frequent trips to the bedside commode with production of small amounts of hard stool. On the afternoon of the patient had significantly large amount of hard stool passed followed by soft brown stool. Patient noted improvement in overall feeling after passage of her fecal impaction. On March 31 the patient was discharged home. Hospice was notified of the patient's discharge as they will be involved in patient care from this point forward. Patient did remain confused due to her dementia during hospitalization. Objective Vital signs: Temp Pulse Resp BP Pulse Ox 97.7 F 57 L 20 166/68 97 03/31/18 04:00 03/31/18 04:00 03/31/18 04:00 03/31/18 04:00 03/31/18 04:00 Results Labs on day of discharge: Labs from last 24 hours 03/30/18 17:28 Urine Color Yellow Urine Appearance Clear Urine pH 7.5 Ur Specific Cook <= 1.005 Urine Protein Negative Urine Glucose (UA) Negative Urine Ketones Negative Urine Blood Negative Urine Nitrate Negative Urine Bilirubin Negative Urine Urobilinogen 0.2 Ur Leukocyte Esterase Negative Urine WBC Occasional Ur Squamous Epith Cells 3-5 Urine Bacteria 1+ DS: Diagnosis - Discharge Diagnosis (1) Fecal impaction Status: Acute (2) Dysuria Status: Acute (3) Cachexia Status: Acute (4) Anorexia Status: Acute (5) Dehydration Status: Acute (6) Dementia Status: Acute Discharge Plan - Patient Discharge Instructions ACTIVITY: Continue current activity DIET: continue same diet - Follow up Plan Disposition: Hospice - Home Home Medications: Home Medications Medication Instructions Recorded Confirmed Type levothyroxine 50 mcg tablet 50 mcg PO DAILY 30 Days #30 11/26/17 03/29/18 History meclizine 25 mg tablet 8.3 mg PO TIDP PRN 11/26/17 03/30/18 History verapamil ER (SR) 120 mg 120 mg PO DAILY 30 Days #30 11/26/17 03/29/18 History tablet,extended release carbidopa 25 mg-levodopa 100 mg 1 tab PO BID 30 Days #60 12/25/17 03/29/18 History tablet Memantine HCl [Memantine 10mg 10 mg PO BID 02/09/18 03/29/18 History Tablet] Mirtazapine 30 mg PO HS 02/09/18 03/29/18 History Prescriptions/Medication Reconciliation: Continue levothyroxine 50 mcg tablet 50 mcg PO DAILY 30 Days #30 meclizine 25 mg tablet 8.3 mg PO TIDP PRN PRN Reason: Dizziness verapamil ER (SR) 120 mg tablet,extended release 120 mg PO DAILY 30 Days #30 carbidopa 25 mg-levodopa 100 mg tablet 1 tab PO BID 30 Days #60 Mirtazapine 30 mg PO HS Memantine HCl [Memantine 10mg Tablet] 10 mg PO BID
== END 2018-03-31 07:50 | disposition hospice, home (50) ==
LOC: 2ND
PROVIDERS: ADMIT Internal Medicine Adolescent Medicine; ATTEND Internal Medicine Adolescent Medicine

== ENCOUNTER 2019-08-14 15:00 | Observation (INO) ==
[2019-08-14 15:32] LABS: Basophils % 0.3 % (0.1-2.0); Eosinophils # 0.4 K/mm3 (0.0-0.4); Eosinophils % 2.8 % (0.1-12.0); Hematocrit 45.8 % (37.0-47.0); Hemoglobin 14.5 g/dL (12.2-16.2); Lymphocytes # 2.5 K/mm3 (0.7-4.5); Mean Corpuscular HGB Conc 31.7 g/dL (31.8-35.4); Mean Corpuscular Volume 101.7 fl (81-99); Mean Platelet Volume 8.1 fl (7.4-10.4); Monocytes # 0.6 K/mm3 (0.1-1.0); Monocytes % 4.8 % (1.7-9.3); Neutrophils # 9.4 K/mm3 (1.8-7.8); Platelet Count 255 K/mm3 (142-424); Red Cell Distribution Width 13.5 % (11.5-17.5); White Blood Count 12.9 K/mm3 (4.8-10.8)
--- NOTE | 2019-08-14 15:57 | Emergency Department Note ---
ED Disposition Clinical Impression: Altered mental status, Generalized weakness, Proctitis Disposition: Admitted as Observation Condition on Discharge: Serious Referrals: Mac Mitchell MD [Primary Care Provider] - Time of Disposition: 19:05 - Critical Care Critical Care Time: No Attestation: On 08/14/19, the high probability of a clinically significant, sudden or life threatening deterioration of the following system(s) required my full and direct attention, intervention and personal management. The time I documented below is in addition to time spent performing reported procedures but includes the following listed in this critical care notation. Medical Decision Making - Medical Records Medical records reviewed: Yes: I reviewed the patient's medical records. - Samuel Inquiry Pt receiving controlled substance: No Vital Signs: 08/14/19 15:02 08/14/19 15:24 Pulse Rate [Radial] 82 81 Respiratory Rate 20 Blood Pressure [Right Arm] 98/32 L 175/63 H Blood Pressure Mean [Right Arm] 54 100 Blood Pressure Source [Right Arm] Automatic Cuff Automatic Cuff Blood Pressure Position [Right Arm] Sitting Sitting 02 Sat by Pulse Oximetry 90 L 98 Oxygen Delivery Method Nasal Cannula Nasal Cannula Oxygen Flow Rate (LPM) 4 4 - Lab Data Lab results reviewed: Yes: I reviewed the patient's lab results. Lab Results 08/14/19 15:18: WBC 12.9 H, RBC 4.50, Hgb 14.5, Hct 45.8, MCV 101.7 H, MCH 32.3 H, MCHC 31.7 L, RDW 13.5, Plt Count 255, MPV 8.1, Neut % (Auto) 73.0, Lymph % (A uto) 19.0, [place] % (Auto) 4.8, Eos % (Auto) 2.8, Baso % (Auto) 0.3, Neut # (Auto) 9.4 H, Lymph # (Auto) 2.5, [place] # (Auto) 0.6, Eos # (Auto) 0.4, Baso # (Auto) 0.0 08/14/19 15:18: Sodium 137, Potassium 4.9, Chloride 99, Carbon Dioxide 30, Anion Gap 12.9, BUN 20 H, Creatinine 0.83, Estimated Creat Clear 26, Estimated GFR 67, Est GFR ( Amer) 81, Glucose 104, Calcium 10.0, Troponin I < 0.02 08/14/19 15:18: B-Natriuretic Peptide 72 08/14/19 16:00: Urine Color Yellow, Urine Appearance Clear, Urine pH 6.0, Ur Specific [place] 1.025, Urine Protein Negative, Urine Glucose (UA) Negative, Urine Ketones Trace, Urine Blood Negative, Urine Nitrate Negative, Urine Bilirubin Negative, Urine Urobilinogen 0.2, Ur Leukocyte Esterase Negative, Urine RBC Occasional, Ur Squamous Epith Cells Occasional, Urine Bacteria Trace 08/14/19 16:28: Total Bilirubin 0.8, Direct Bilirubin 0.2, Indirect Bilirubin 0.6, AST 16, ALT 12, Alkaline Phosphatase 68, Total Protein 6.0 L, Albumin 3.2 L , TSH 1.49 Result diagrams: 08/14/19 15:18 08/14/19 15:18 Orders (Tests/Meds): ED MEDICATIONS Discontinued Medications Generic Name Dose Route Start Last Admin Trade Name Freq PRN Reason Stop Dose Admin Sodium Chloride 1,000 mls @ 999 mls/hr 08/14/19 16:15 08/14/19 16:10 Sod Chlor 0.9% 1000ml Bag IV 08/14/19 17:15 999 mls/hr .Q1H1M ALPHONSO Administration ORDERS Category Date Time Status CT abdomen pelvis wo con Stat Cat Scan 08/14/19 17:[address] chest wo con Stat Cat Scan 08/14/19 17:37 Taken ABG [Arterial Blood Gas] Stat RT 08/14/19 15:52 Ordered ECG Request by /Hunter Stat Y 08/14/19 15:04 Ordered - CT Data CT Scan: Abdomen, Pelvis Time Received: 18:[address] Reviewed: Yes: I have reviewed the patient's CT results, I have viewed the radiologist's interpretation Preliminary Findings: Abnormal (Colitis/proctitis) General Adult HPI - General Chief complaint: Weakness Stated complaint: WEAKNESS Time Seen by Provider: 08/14/19 15:10 Mode of Arrival: EMS Limitations: No Limitations Description of Symptoms (Recalled from ER Triage Doc. by RN): Family states that for the last two hours the patient has been sitting on the couch not talking and lethargic. States she was walking fine yesterday. - History of Present Illness HPI narrative: 78-year old cachectic appearing female brought in by family due to lethargy associated with severe generalized weakness starting this morning. Onset (ago): hour(s) (8) Severity: severe Consistency: constant Relieving factors: none Exacerbating factors: none Associated symptoms: confusion, loss of appetite Treatments prior to arrival: none - Related Data Home Medications Medication Instructions Recorded Confirmed levothyroxine 50 mcg tablet 50 mcg PO DAILY 30 Days #30 11/26/17 08/14/19 meclizine 25 mg tablet 8.3 mg PO TIDP PRN 11/26/17 08/14/19 RX: Mirtazapine 30 mg PO HS 02/09/18 08/14/19 RX: Propranolol HCl 10 mg PO DAILY 08/14/19 08/14/19 RX: risperiDONE [Risperdal 1mg 1 mg PO DAILY 08/14/19 08/14/19 Tablet] Previous Rx's Medication Instructions Recorded memantine 10 mg tablet 10 mg PO BID 30 Days #60 tab 11/01/18 Allergies Allergy/AdvReac Type Severity Reaction Status Date / Time promethazine [PROMETHAZINE] Allergy Mild Verified 12/25/17 16:24 [facility] History - Hepatitis A Screen Drug use history?: No High risk sexual behaviors?: No History of sexually transmitted infection?: No Currently employed?: No Childcare worker?: No Do you have indoor plumbing?: Yes Do you have electricity?: Yes Attestation statement:: This patient has been screened for Hepatitis A risk factors. 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 History of protein calorie malnutrition with severe weight loss which is worsening. Laterality Cases: Right: Lumpectomy Other Surgeries: Yes: Hysterectomy-Partial, Other Amputation: No Comment: Back - Social History Educational Level: Completed High School Smoking Status: Former smoker Tobacco Type: cigarettes #Yrs smoked (if former smoker): 5 Alcohol Intake: never Alcohol Intake Frequency:: holidays/special occasions only Substance Use Type: denies use Occupational Status: retired Housing: house Household Members: significant other Family Hx:: Cancer, Coronary Artery Disease, Heart Attack, Hyperlipidemia, Hypertension, Stroke, Thyroid Disorder Comment: alzheimers ROS Obtained: Yes All systems reviewed & no additional complaints - Constitutional Constitutional: Reports fatigue, Reports lethargy, Reports malaise - Eyes Eyes: Reports system reviewed and no additional complaints, except as docu - ENT Ears, Nose, Mouth, and Throat: Reports system reviewed and no additional complaints, except as docu - Cardiovascular Cardiovascular: Reports system reviewed and no additional complaints, except as docu - Respiratory Respiratory: Yes system reviewed and no additional complaints, except as docu - Gastrointestinal Gastrointestingal: Reports: system reviewed and no additional complaints, except as docu - Genitourinary Female Genitourinary: Reports system reviewed and no additional complaints, except as docu - Musculoskeletal Musculoskeletal: Reports muscle weakness - Integumentary/Breasts Skin/Breast: Reports system reviewed and no additional complaints, except as docu - Neurologic Neurologic: Reports confusion, Reports weakness - Endocrine Endocrine: Reports system reviewed and no additional complaints, except as docu - Hematologic/Lymphatic Henatologic/Lymphatic: Reports system reviewed and no additional complaints, except as docu - Allergic/Immunologic Allergic/Immunologic: Reports system reviewed and no additional complaints, except as docu Physical Exam - General General appearance: lethargic - Head Head exam: atraumatic, normocephalic, normal inspection - Eye Eye exam: Present: normal appearance, PERRL, EOMI - ENT ENT exam: Present: mucous membranes moist - Neck Neck exam: Present: normal inspection, full ROM, trachea midline. Absent: meningismus, lymphadenopathy - Chest Chest inspection: Present: normal inspection, symmetric chest wall rise. Absent: tenderness - Respiratory Respiratory exam: Present: normal lung sounds bilaterally. Absent: respiratory distress - Cardiovascular Cardiovascular exam: Present: regular rate, normal rhythm. Absent: JVD - Abdominal Exam Abdominal exam: Present: soft, normal bowel sounds. Absent: distention, tenderness, guarding - Extremities Exam Extremities exam: Present: normal inspection, full ROM, normal capillary refill. Absent: calf tenderness - Back Exam Back exam: Present: normal inspection. Absent: tenderness - Neurological Exam Neurological exam: Present: CN II-XII intact. Absent: motor sensory deficit - Psychiatric Psychiatric exam: Present: depressed - Skin Skin exam: Present: warm, dry, intact, normal color
[2019-08-14 16:05] LABS: Anion Gap 12.9 mEq/L (5-15); Blood Urea Nitrogen 20 mg/dL (7-18); Carbon Dioxide 30 mmol/L (21.0-32.0); Chloride 99 mmol/L (98-107); Glucose 104 mg/dL (74-106); Sodium 137 mmol/L (136-145)
[2019-08-14 17:03] LABS: Albumin Level 3.2 gm/dL (3.4-5.0); Bilirubin,Indirect 0.6 mg/dL (0.0-0.9); Bilirubin,Total 0.8 mg/dL (0.2-1.0); Thyroid Stimulating Hormone 1.49 uIU/ml (0.358-3.740)
[2019-08-14 19:16] LABS: Bilirubin,Direct 0.2 mg/dL (0.0-0.2)
[2019-08-15 07:40] LABS: Basophils % 0.2 % (0.1-2.0); Eosinophils # 0.5 K/mm3 (0.0-0.4); Hematocrit 35.9 % (37.0-47.0); Lymphocytes % 24.3 % (10-50); Mean Corpuscular HGB Conc 31.1 g/dL (31.8-35.4); Mean Corpuscular Volume 100.4 fl (81-99); Mean Platelet Volume 7.8 fl (7.4-10.4); Monocytes # 0.5 K/mm3 (0.1-1.0); Monocytes % 5.9 % (1.7-9.3); Neutrophils # 5.3 K/mm3 (1.8-7.8); Neutrophils % 63.6 % (37.0-80.0); Platelet Count 179 K/mm3 (142-424); Red Blood Count 3.58 M/mm3 (4.20-5.40); Red Cell Distribution Width 13.6 % (11.5-17.5); White Blood Count 8.4 K/mm3 (4.8-10.8)
--- NOTE | 2019-08-15 07:42 | Pharmacy Consult Notes ---
[facility] Pharmacy VTE Monitoring - Patient Demographics Admission date: 08/15/19 Report Date: 08/15/19 Time: 07:42 Allergies/Adverse Reactions: Patient Allergies promethazine [PROMETHAZINE] Allergy (Mild, Verified 12/25/17 16:24) Height: 1.52 m Weight: 34.671 kg Patient Problems: Current Active Problems Altered mental status (Acute) Generalized weakness (Acute) Proctitis (Acute) - VTE Risk Labs: VTE Related Lab Results Hgb 14.5 g/dL (12.2-16.2) 08/14/19 15:18 Hct 35.9 % (37.0-47.0) L 08/15/19 07:26 Plt Count 179 K/mm3 (142-424) D 08/15/19 07:26 BUN 20 mg/dL (7-18) H 08/14/19 15:18 Creatinine 0.83 mg/dL (0.55-1.02) 08/14/19 15:18 Estimated Creat Clear 26 mL/min (50-200) 08/14/19 15:18 Was VTE Risk Assessment Performed: Yes VTE Score: 3 VTE Risk Level: Low Risk Clinical Trial Participant: No - Prophylaxis VTE Prophylaxis Ordered?: Yes Types of VTE Prophylaxis: TEDS Knee High
[2019-08-15 07:52] LABS: Hemoglobin 11.3 g/dL (12.2-16.2)
[2019-08-15 08:00] LABS: Albumin Level 2.5 gm/dL (3.4-5.0); Albumin/Globulin Ratio 0.9 (1.1-1.8); Anion Gap 7.9 mEq/L (5-15); Bilirubin,Total 0.6 mg/dL (0.2-1.0); Globulin 2.9 gm/dl (1.3-3.2); Phosphorous 3.7 mg/dL (2.4-4.9); Total Protein,Serum 5.4 gm/dL (6.4-8.2)
[2019-08-15 08:10] LABS: Calcium 8.1 mg/dL (8.5-10.1)
--- NOTE | 2019-08-15 09:04 | H&P/Discharge Summary ---
General - General Admission date:: 08/14/19 Discharge date: 08/15/19 *Admission Date: 08/15/19 *Chief complaint: AMS *History of present illness: Ms. Cardona is a 78-year-old female with history of dementia, recent worsening hallucinations, severe debility, who presented to the ER due to worsening altered mental status. Of note she was seen in primary care office on Sunday where her Seroquel was switched to Risperdal. This is just prior to the change in her mental status. She received 2 doses of the medication prior to being brought in by her significant other. This morning she states she had been more confused but then goes on tangential comments with her speech which is baseline for her. Denies any chest pain, shortness of breath, nausea, vomiting. Has had some loose stools intermittently for the past few days. Afebrile this morning. Significant other at bedside states she has back to her baseline. Tolerated small bites of breakfast this morning. Labs this morning somewhat improved after starting on antibiotics last night in the ER for proctitis. [facility] History I have reviewed the patient's past medical history: Yes Medical History: Reports:: Asthma, Cancer (Breast CA R lumpectomy), Chronic Obstructive Pulmonary Disease (COPD), Hypertension Denies:: Diabetes Mellitus Type 1, Diabetes Mellitus Type 2, MRSA *Have you ever received a pneumonia vaccine?: No *Have you received a flu vaccine this season?: Yes Other Medical History: Reports: Chemotherapy (OVER 10 YEARS AGO), Radiation Therapy (OVER 10 YEARS AGO) Laterality Cases: Right: Lumpectomy Other Surgeries: Yes: Hysterectomy-Partial, Other Amputation: No Fractures: Yes - *Social History Educational Level: Completed High School Smoking Status: Former smoker Tobacco Type: cigarettes # Packs/Day (cigarettes): 1 #Yrs smoked (if former smoker): 5 Smoking End Date: 1999 Alcohol Intake: never Alcohol Intake Frequency:: holidays/special occasions only Substance Use Type: denies use *Occupational Status:: retired Housing: house Household Members: significant other *Travel in the last 8 weeks: None Family Hx:: Heart Attack Review of Systems - Review of Systems Review of systems:: pertinent systems reviewed and negative unless documented below - *Neurologic Reports confusion, Reports weakness Exam Vital signs and Labs for Last 24 Hours: Temp Pulse Resp BP Pulse Ox 97.7 F 84 18 115/42 L 100 08/15/19 08:00 08/15/19 08:00 08/15/19 08:00 08/15/19 08:00 08/15/19 08:00 Laboratory Results - last 24 hr 08/14/19 15:18: WBC 12.9 H, RBC 4.50, Hgb 14.5, Hct 45.8, MCV 101.7 H, MCH 32.3 H, MCHC 31.7 L, RDW 13.5, Plt Count 255, MPV 8.1, Neut % (Auto) 73.0, Lymph % (Auto) 19.0, [place] % (Auto) 4.8, Eos % (Auto) 2.8, Baso % (Auto) 0.3, Neut # (Auto) 9.4 H, Lymph # (Auto) 2.5, [place] # (Auto) 0.6, Eos # (Auto) 0.4, Baso # (Auto) 0.0 08/14/19 15:18: Sodium 137, Potassium 4.9, Chloride 99, Carbon Dioxide 30, Anion Gap 12.9, BUN 20 H, Creatinine 0.83, Estimated Creat Clear 26, Estimated GFR 67, Est GFR ( Amer) 81, Glucose 104, Calcium 10.0, Troponin I < 0.02 08/14/19 15:18: B-Natriuretic Peptide 72 08/14/19 16:00: Urine Color Yellow, Urine Appearance Clear, Urine pH 6.0, Ur Specific [place] 1.025, Urine Protein Negative, Urine Glucose (UA) Negative, Urine Ketones Trace, Urine Blood Negative, Urine Nitrate Negative, Urine Bilirubin Negative, Urine Urobilinogen 0.2, Ur Leukocyte Esterase Negative, Urine RBC Occasional, Ur Squamous Epith Cells Occasional, Urine Bacteria Trace 08/14/19 16:28: Total Bilirubin 0.8, Direct Bilirubin 0.2, Indirect Bilirubin 0.6, AST 16, ALT 12, Alkaline Phosphatase 68, Total Protein 6.0 L, Albumin 3.2 L , TSH 1.49 08/15/19 07:26: WBC 8.4 D, RBC 3.58 L, Hgb 11.3 L D, Hct 35.9 L, MCV 100.4 H, MCH 31.2, MCHC 31.1 L, RDW 13.6, Plt Count 179 D, MPV 7.8, Neut % (Auto) 63.6, Lymph % (Auto) 24.3, [place] % (Auto) 5.9, Eos % (Auto) 6.0, Baso % (Auto) 0.2, Neut # (Auto) 5.3, Lymph # (Auto) 2.0, [place] # (Auto) 0.5, Eos # (Auto) 0.5 H, Ba so # (Auto) 0.0 08/15/19 07:26: Sodium 136, Potassium 3.9 D, Chloride 104, Carbon Dioxide 28, BUN 16, Creatinine 0.73, Glucose 121 H, Calcium 8.1 L D, Phosphorus 3.7, Magnesium 1.2 L, Total Bilirubin 0.6, AST 15, ALT 9 L, Alkaline Phosphatase 60, Total Protein 5.4 L, Albumin 2.5 L D I & O for Last 24 hours: Intake & Output 08/12/19 08/13/19 08/14/19 08/15/19 23:59 23:59 23:59 23:59 Intake Total 1500 / 1500 731 / 731 Output Total 550 / 550 Balance 1500 / 1500 181 / 181 Weight 34.53 kg 34.671 kg - Constitutional no acute distress, cachectic, chronically ill appearing Comments: bitemporal wasting - *Routine HEENT Exam Head: Present: normocephalic Eye: Present: EOMI, PERRL ENT: Present: mucous membranes moist - *Routine Neck Exam Present: supple. Absent: lymphadenopathy - *Routine Respiratory Exam Present: CTA bilaterally - *Routine Cardiovascular Exam Present: RRR - *Routine Abdominal Exam Present: soft, normoactive bowel sounds. Absent: tenderness - *Routine Extremities Exam Absent: cyanosis, clubbing, edema Comments: sarcopenia - *Routine Skin Exam Present: warm. Absent: rash - *Routine Neurological Exam Present: alert oriented to person and place, tangential speech, at baseline mentation Hospital Course Hospital Course: Observed overnight. Initiated on IV fluids. Started on broad-spectrum antibiotics for proctitis. Additionally her antipsychotics were held including Seroquel and Risperdal. Patient had improvement in mentation to baseline by morning. Making good urine. Tolerating p.o. intake. Remained hemodynamically stable and afebrile. Plan to transition oral antibiotics for short course of therapy and hold Risperdal discharge. We will have close follow-up to assess mentation and consider resuming medications given patient's worsening dementia and hallucinations. Results Labs on day of discharge: Labs from last 24 hours 08/15/19 08/15/19 08/14/19 07:26 07:26 16:28 WBC 8.4 D RBC 3.58 L Hgb 11.3 L D Hct 35.9 L MCV 100.4 H MCH 31.2 MCHC 31.1 L RDW 13.6 Plt Count 179 D MPV 7.8 Neut % (Auto) 63.6 Lymph % (Auto) 24.3 [place] % (Auto) 5.9 Eos % (Auto) 6.0 Baso % (Auto) 0.2 Neut # (Auto) 5.3 Lymph # (Auto) 2.0 [place] # (Auto) 0.5 Eos # (Auto) 0.5 H Baso # (Auto) 0.0 Sodium 136 Potassium 3.9 D Chloride 104 Carbon Dioxide 28 Anion Gap BUN 16 Creatinine 0.73 Estimated Creat Clear Estimated GFR Est GFR ( Amer) Glucose 121 H Calcium 8.1 L D Phosphorus 3.7 Magnesium 1.2 L Total Bilirubin 0.6 0.8 Direct Bilirubin 0.2 Indirect Bilirubin 0.6 AST 15 16 ALT 9 L 12 Alkaline Phosphatase 60 68 Troponin I B-Natriuretic Peptide Total Protein 5.4 L 6.0 L Albumin 2.5 L D 3.2 L TSH 1.49 Urine Color Urine Appearance Urine pH Ur Specific [place] Urine Protein Urine Glucose (UA) Urine Ketones Urine Blood Urine Nitrate Urine Bilirubin Urine Urobilinogen Ur Leukocyte Esterase Urine RBC Ur Squamous Epith Cells Urine Bacteria 08/14/19 08/14/19 08/14/19 16:00 15:18 15:18 WBC RBC Hgb Hct MCV MCH MCHC RDW Plt Count MPV Neut % (Auto) Lymph % (Auto) [place] % (Auto) Eos % (Auto) Baso % (Auto) Neut # (Auto) Lymph # (Auto) [place] # (Auto) Eos # (Auto) Baso # (Auto) Sodium 137 Potassium 4.9 Chloride 99 Carbon Dioxide 30 Anion Gap 12.9 BUN 20 H Creatinine 0.83 Estimated Creat Clear 26 Estimated GFR 67 Est GFR ( Amer) 81 Glucose 104 Calcium 10.0 Phosphorus Magnesium Total Bilirubin Direct Bilirubin Indirect Bilirubin AST ALT Alkaline Phosphatase Troponin I < 0.02 B-Natriuretic Peptide 72 Total Protein Albumin TSH Urine Color Yellow Urine Appearance Clear Urine pH 6.0 Ur Specific [place] 1.025 Urine Protein Negative Urine Glucose (UA) Negative Urine Ketones Trace Urine Blood Negative Urine Nitrate Negative Urine Bilirubin Negative Urine Urobilinogen 0.2 Ur Leukocyte Esterase Negative Urine RBC Occasional Ur Squamous Epith Cells Occasional Urine Bacteria Trace 08/14/19 15:18 WBC 12.9 H RBC 4.50 Hgb 14.5 Hct 45.8 MCV 101.7 H MCH 32.3 H MCHC 31.7 L RDW 13.5 Plt Count 255 MPV 8.1 Neut % (Auto) 73.0 Lymph % (Auto) 19.0 [place] % (Auto) 4.8 Eos % (Auto) 2.8 Baso % (Auto) 0.3 Neut # (Auto) 9.4 H Lymph # (Auto) 2.5 [place] # (Auto) 0.6 Eos # (Auto) 0.4 Baso # (Auto) 0.0 Sodium Potassium Chloride Carbon Dioxide Anion Gap BUN Creatinine Estimated Creat Clear Estimated GFR Est GFR ( Amer) Glucose Calcium Phosphorus Magnesium Total Bilirubin Direct Bilirubin Indirect Bilirubin AST ALT Alkaline Phosphatase Troponin I B-Natriuretic Peptide Total Protein Albumin TSH Urine Color Urine Appearance Urine pH Ur Specific [place] Urine Protein Urine Glucose (UA) Urine Ketones Urine Blood Urine Nitrate Urine Bilirubin Urine Urobilinogen Ur Leukocyte Esterase Urine RBC Ur Squamous Epith Cells Urine Bacteria DS: Diagnosis - Discharge Diagnosis (1) Altered mental status Status: Resolved (2) Generalized weakness Status: Chronic (3) Proctitis Status: Acute (4) Cachexia Status: Chronic (5) Dementia Status: Chronic Discharge Plan - Patient Discharge Instructions Patient Instructions: DI for Altered Mental Status - Follow up Plan Follow up with: Mac Mitchell MD [Primary Care Provider] - Disposition: Home, Self-Senior Care Medications: Home Medications Medication Instructions Recorded Confirmed Type levothyroxine 50 mcg tablet 50 mcg PO DAILY 30 Days #30 11/26/17 08/14/19 History meclizine 25 mg tablet 8.3 mg PO TIDP PRN 11/26/17 08/14/19 History memantine 10 mg tablet 10 mg PO BID 30 Days #60 tab 11/01/18 08/14/19 Rx Propranolol HCl 10 mg PO BID 08/14/19 08/15/19 History risperiDONE [Risperdal 1mg Tablet] 1 mg PO BID 08/14/19 08/15/19 History Albuterol Sulfate [Albuterol HFA 2 puffs IH QID 08/15/19 08/15/19 History Inhaler] Hydrocortisone [Proctosol-Hc] 1 applicatio RC BID 08/15/19 08/15/19 History Polyethylene Glycol 3350 [Miralax 17 gm PO DAILY 08/15/19 08/15/19 History 17gm Packet] metroNIDAZOLE [Flagyl 500mg 500 mg PO Q8H 5 Days #15 tab 08/15/19 Rx Tablet] Prescriptions/Medication Reconciliation: New metroNIDAZOLE [Flagyl 500mg Tablet] 500 mg PO Q8H 5 Days #15 tab Continued levothyroxine 50 mcg tablet 50 mcg PO DAILY 30 Days #30 meclizine 25 mg tablet 8.3 mg PO TIDP PRN PRN Reason: Dizziness memantine 10 mg tablet 10 mg PO BID 30 Days #60 tab Propranolol HCl 10 mg PO BID Polyethylene Glycol 3350 [Miralax 17gm Packet] 17 gm PO DAILY Albuterol Sulfate [Albuterol HFA Inhaler] 2 puffs IH QID Hydrocortisone [Proctosol-Hc] 1 applicatio RC BID Discontinued risperiDONE [Risperdal 1mg Tablet] 1 mg PO BID - Problem Reconciliation Problems Reviewed?: Yes
== END 2019-08-15 14:30 | disposition home or self-care (01) ==
LOC: ER 15:00 → 2ND 15:00
PROVIDERS: ADMIT Internal Medicine Adolescent Medicine; ATTEND Internal Medicine Adolescent Medicine
DX: R44.3 Hallucinations, unspecified; Z79.899 Other long term (current) drug therapy; Z85.3 Personal history of malignant neoplasm of breast; K62.89 Other specified diseases of anus and rectum; Z68.1 Body mass index [BMI] 19.9 or less, adult; F03.91 Unspecified dementia, unspecified severity, with behavioral disturbance; R64 Cachexia; F05 Delirium due to known physiological condition; Z88.8 Allergy status to other drugs, medicaments and biological substances; R53.1 Weakness; T43.595A Adverse effect of other antipsychotics and neuroleptics, initial encounter; J44.9 Chronic obstructive pulmonary disease, unspecified; I10 Essential (primary) hypertension
CPT/HCPCS: 36415; 70450; 71010; 71045; 71250; 74176; 80048; 80053; 80076; 81001; 83735; 83880; 84100; 84443; 84484; 85025; 96365; 99284; G0378; J2543

== ENCOUNTER → 2019-09-02 10:58 | Outpatient (CLI) | payer MEDICARE, OTHER, MEDICAID, SELFPAY ==
--- NOTE | 2019-09-02 11:03 | XR_ITS ---
PROCEDURE: XR CHEST 2V CLINICAL HISTORY: COUGH Cough and weakness COMPARISON: CXR1 CHEST-PORTABLE from 11/12/2016 CXR2V XR chest 2V from 12/01/2017 XR CHEST PORTABLE from 08/14/2019 CT CHEST WO CON from 08/14/2019 FINDINGS: The cardiomediastinal silhouette and pulmonary vascularity are within normal limits. COPD. Surgical clips are present overlying the right lung base medially. There is minimal blunting of the left CP angle. No lobar consolidation or collapse. Wedge compression changes are present involving T8 of approximately 50 percent anteriorly similar to the previous CT scan of 08/14/2019. Multiple pins are present in the left humerus IMPRESSION: COPD with suggestion of a tiny left effusion. Chronic wedge compression changes of T8 Dictated by: Juan A Velasco MD 09/02/2019 11:30 Electronically signed by Juan A Velasco MD in [place] 09/02/2019 11:30
== END ==
PROVIDERS: PCP Internal Medicine Adolescent Medicine; Visit Provider Internal Medicine Adolescent Medicine
DX: R05 Cough (principal)
CPT/HCPCS: 71046

== ENCOUNTER 2019-09-15 08:53 | Observation (INO) ==
[2019-09-15 13:01] LABS: Basophils % 0.3 % (0.1-2.0); Eosinophils # 0.1 K/mm3 (0.0-0.4); Eosinophils % 0.5 % (0.1-12.0); Hematocrit 47.6 % (37.0-47.0); Hemoglobin 14.6 g/dL (12.2-16.2); Lymphocytes % 14.1 % (10-50); Mean Corpuscular HGB Conc 30.8 g/dL (31.8-35.4); Mean Corpuscular Volume 104.9 fl (81-99); Mean Platelet Volume 8.8 fl (7.4-10.4); Monocytes # 0.8 K/mm3 (0.1-1.0); Monocytes % 5.9 % (1.7-9.3); Neutrophils % 79.2 % (37.0-80.0); Platelet Count 300 K/mm3 (142-424); Red Blood Count 4.54 M/mm3 (4.20-5.40); Red Cell Distribution Width 13.4 % (11.5-17.5); White Blood Count 13.9 K/mm3 (4.8-10.8)
[2019-09-15 13:09] LABS: Albumin Level 3.3 gm/dL (3.4-5.0); Albumin/Globulin Ratio 0.9 (1.1-1.8); Bilirubin,Total 0.4 mg/dL (0.2-1.0); Calcium 9.1 mg/dL (8.5-10.1); Globulin 3.5 gm/dl (1.3-3.2); Total Protein,Serum 6.8 gm/dL (6.4-8.2)
--- NOTE | 2019-09-15 13:39 | Pharmacy Consult Notes ---
[facility] Pharmacy VTE Monitoring - Patient Demographics Admission date: 09/15/19 Report Date: 09/15/19 Time: 13:39 Allergies/Adverse Reactions: Patient Allergies promethazine [PROMETHAZINE] Allergy (Mild, Verified 12/25/17 16:24) Height: 1.6 m Weight: 27.216 kg - VTE Risk Labs: VTE Related Lab Results Hgb 14.6 g/dL (12.2-16.2) 09/15/19 10:55 Hct 47.6 % (37.0-47.0) H 09/15/19 10:55 Plt Count 300 K/mm3 (142-424) 09/15/19 10:55 BUN 23 mg/dL (7-18) H 09/15/19 10:55 Creatinine 0.96 mg/dL (0.55-1.02) 09/15/19 10:55 Estimated Creat Clear 20 mL/min (50-200) 09/15/19 10:55 VTE Score: 4 VTE Risk Level: Low Risk - Prophylaxis VTE Prophylaxis Ordered?: Yes Types of VTE Prophylaxis: TEDS Knee High Location of Applied Device: Bilateral Lower Extremeties - VTE Diagnosis Confirmed Treatment or plan recommended: Continue Current Treatment
[2019-09-15 14:44] LABS: Microscopic, Urine URINE MICROSCOPIC (MICROSCOPIC)
[2019-09-15 14:51] LABS: Appearance,Urine CLEAR (Clear); Blood, Urine Negative (Negative); Color,Urine YELLOW (Yellow); Glucose,Urine (UA) Negative (Negative); Ketones,Urine 1+ (Negative); Leukocyte Esterase,Urine TRACE (Negative); Protein,Urine TRACE (Negative); Specific Gravity, Urine 1.025 (1.005-1.030)
[2019-09-15 14:56] LABS: Bilirubin,Urine Negative (Negative); Urobilinogen,Urine N EU/dl (0.2)
[2019-09-15 15:06] LABS: Bacteria,Urine 1+ /lpf
--- NOTE | 2019-09-15 18:04 | History & Physical Report ---
*Admission Date: 09/15/19 *Chief complaint: Weight loss/frequent falls *History of present illness: 78-year-old white female with long history of dementia, precipitated by long history of alcohol abuse, frequent falls and multiple head trauma with resulting dementia that has not responded to memantine or Aricept. She has been living locally with her boyfriend with oversight from her son and has been in and out of hospice care because of senile debility with functional decline and malnutrition. She was recently admitted to the hospital for somnolence and mental status changes after Seroquel at home was changed to Risperdal, has cleared somewhat from that, but after discharge has become progressively more weak, significant weight loss noted, severe protein calorie malnutrition, and was readmitted today for labs and decision about placement. [facility] History I have reviewed the patient's past medical history: Yes Medical History: Reports:: Asthma, Cancer (Breast CA R lumpectomy), Chronic Obstructive Pulmonary Disease (COPD), Hypertension Denies:: Diabetes Mellitus Type 1, Diabetes Mellitus Type 2, MRSA *Have you ever received a pneumonia vaccine?: No *Have you received a flu vaccine this season?: Yes Other Medical History: Reports: Chemotherapy (OVER 10 YEARS AGO), Radiation Therapy (OVER 10 YEARS AGO) Laterality Cases: Right: Lumpectomy Other Surgeries: Yes: Hysterectomy-Partial, Other Amputation: No Fractures: Yes - *Social History Educational Level: Attended College Smoking Status: Former smoker Tobacco Type: cigarettes # Packs/Day (cigarettes): 1 #Yrs smoked (if former smoker): 5 Smoking End Date: 15+ years Alcohol Intake: never Alcohol Intake Frequency:: holidays/special occasions only Substance Use Type: denies use *Occupational Status:: retired Housing: house Household Members: significant other *Travel in the last 8 weeks: None Family Hx:: Heart Attack Review of Systems - Review of Systems Review of systems:: unable to obtain Meds Home Medications Medication Instructions Recorded Confirmed Type levothyroxine 50 mcg tablet 50 mcg PO DAILY 30 Days #30 11/26/17 09/15/19 History meclizine 25 mg tablet 25 mg PO TIDP PRN 11/26/17 09/15/19 History memantine 10 mg tablet 10 mg PO BID 30 Days #60 tab 11/01/18 09/15/19 Rx Propranolol HCl 10 mg PO BID 08/14/19 09/15/19 History Albuterol Sulfate [Albuterol HFA 2 puffs IH QIDP PRN 08/15/19 09/15/19 History Inhaler] Donepezil HCl [Aricept 5mg 5 mg PO DAILY 09/15/19 09/15/19 History Tablet] Mirtazapine [Remeron 15mg tablet] 7.5 mg PO HS 09/15/19 09/15/19 History Quetiapine Fumarate 25 mg PO BID 09/15/19 09/15/19 History Allergies Allergy/AdvReac Type Severity Reaction Status Date / Time promethazine [PROMETHAZINE] Allergy Mild Verified 12/25/17 16:24 Exam Vital signs and Labs for Last 24 Hours: Temp Pulse Resp BP Pulse Ox 97.9 F 68 18 171/74 H 94 L 09/15/19 16:00 09/15/19 16:00 09/15/19 16:00 09/15/19 16:00 09/15/19 16:00 Laboratory Results - last 24 hr 09/15/19 10:55: WBC 13.9 H, RBC 4.54, Hgb 14.6, Hct 47.6 H, MCV 104.9 H, MCH 32.3 H, MCHC 30.8 L, RDW 13.4, Plt Count 300, MPV 8.8, Neut % (Auto) 79.2, Lymph % (Auto) 14.1, [place] % (Auto) 5.9, Eos % (Auto) 0.5, Baso % (Auto) 0.3, Neut # (Auto) 11.0 H, Lymph # (Auto) 2.0, [place] # (Auto) 0.8, Eos # (Auto) 0.1, Baso # (Auto) 0.0 09/15/19 10:55: Sodium 143, Potassium 3.0 L, Chloride 104, Carbon Dioxide 32, Anion Gap 10.0, BUN 23 H, Creatinine 0.96, Estimated Creat Clear 20, Estimated GFR 56 L, Est GFR ( Amer) 68, Glucose 176 H, Calcium 9.1, Magnesium 1.8, Total Bilirubin 0.4, AST 17, ALT 10 L, Alkaline Phosphatase 57, Total Protein 6.8 D, Albumin 3.3 L, Globulin 3.5 H, Albumin/Globulin Ratio 0.9 L 09/15/19 14:35: Urine Color Yellow, Urine Appearance Clear, Urine pH 6.0, Ur Specific [place] 1.025, Urine Protein Trace, Urine Glucose (UA) Negative, Urine Ketones 1+, Urine Blood Negative, Urine Nitrate Negative, Urine Bilirubin Negative, Urine Urobilinogen N, Ur Leukocyte Esterase Trace, Urine RBC 5-10, Urine WBC 5-10, Ur Squamous Epith Cells 5-10, Urine Bacteria 1+ I & O for Last 24 hours: Intake & Output 09/13/19 09/14/19 09/15/19 09/16/19 11:59 11:59 11:59 11:59 Intake Total 120 / 120 Balance 120 / 120 Weight 60 lb 60 lb 0.016 oz Narrative: Frail, cachectic white female, oriented x1, oropharynx clear, dry. No JVD. Lungs have poor air movement. Heart rate regular. Abdomen soft and scaphoid. Extremities cachectic with evidence of muscle wasting. No focal neurologic deficits. Significantly demented. No skin breakdown. Assessment and Plan (1) Severe protein-calorie malnutrition Current visit: Yes Status: Acute Category: Medical Code(s): E43 - Unspecified severe protein-calorie malnutrition Significant/terminal dementia. Admit to hospital, check electrolytes. Patient would benefit from long-term care placement, possibly with hospice reevaluation. We will address this with care management and plan for placement tomorrow. (2) Dementia Current visit: Yes Status: Acute Category: Medical Code(s): F03.90 - Unspecified dementia without behavioral disturbance (3) Frequent falls Current visit: Yes Status: Acute Category: Medical Code(s): R29.6 - Repeated falls (4) Cachexia Current visit: No Status: Chronic Category: Medical Code(s): R64 - Cachexia
--- NOTE | 2019-09-16 08:00 | Discharge Summary ---
General - General Admission date:: 09/15/19 Discharge date: 09/16/19 HPI HPI: 78-year-old white female with long history of dementia, precipitated by long history of alcohol abuse, frequent falls and multiple head trauma with resulting dementia that has not responded to memantine or Aricept. She has been living locally with her boyfriend with oversight from her son and has been in and out of hospice care because of senile debility with functional decline and malnutrition. She was recently admitted to the hospital for somnolence and mental status changes after Seroquel at home was changed to Risperdal, has cleared somewhat from that, but after discharge has become progressively more weak, significant weight loss noted, severe protein calorie malnutrition, and was readmitted today for labs and decision about placement. Hospital Course Hospital Course: Patient was admitted overnight. Metabolic testing were done which revealed a mild hypokalemia but otherwise labs were surprisingly normal. Family discussion was held and given her significant comorbidity issues it was decided to pursue long-term care placement for ongoing palliative care given her significant comorbidities, poor function and mental status deficiencies. Bed was found at [facility] and she will be transferred there today. Please note she will have a PT and OT consult to see if she could participate in therapy. Soft mechanical diet with chopped meats. She will need to have p.o. intake encouraged. Medications are as noted on the reconciliation form. Please note she maintains a DNR status. Objective Vital signs: Temp Pulse Resp BP Pulse Ox 98.0 F 63 17 185/80 H 94 L 09/16/19 04:00 09/16/19 04:00 09/16/19 04:00 09/16/19 04:00 09/16/19 04:00 Narrative: Patient is frail, cachectic, severe protein calorie malnutrition noted. Oropharynx moist. Dentures in good repair. Significantly disoriented, but pleasant, neurologic exam is nonfocal as she responds to simple commands. No skin breakdown. Poor skin turgor. Significant generalized muscle atrophy. Lungs are clear, heart rate regular. Abdomen scaphoid but soft. Skin is warm and well-perfused. Results Labs on day of discharge: Labs from last 24 hours 09/15/19 09/15/19 09/15/19 14:35 10:55 10:55 WBC 13.9 H RBC 4.54 Hgb 14.6 Hct 47.6 H MCV 104.9 H MCH 32.3 H MCHC 30.8 L RDW 13.4 Plt Count 300 MPV 8.8 Neut % (Auto) 79.2 Lymph % (Auto) 14.1 [place] % (Auto) 5.9 Eos % (Auto) 0.5 Baso % (Auto) 0.3 Neut # (Auto) 11.0 H Lymph # (Auto) 2.0 [place] # (Auto) 0.8 Eos # (Auto) 0.1 Baso # (Auto) 0.0 Sodium 143 Potassium 3.0 L Chloride 104 Carbon Dioxide 32 Anion Gap 10.0 BUN 23 H Creatinine 0.96 Estimated Creat Clear 20 Estimated GFR 56 L Est GFR ( Amer) 68 Glucose 176 H Calcium 9.1 Magnesium 1.8 Total Bilirubin 0.4 AST 17 ALT 10 L Alkaline Phosphatase 57 Total Protein 6.8 D Albumin 3.3 L Globulin 3.5 H Albumin/Globulin Ratio 0.9 L Urine Color Yellow Urine Appearance Clear Urine pH 6.0 Ur Specific [place] 1.025 Urine Protein Trace Urine Glucose (UA) Negative Urine Ketones 1+ Urine Blood Negative Urine Nitrate Negative Urine Bilirubin Negative Urine Urobilinogen N Ur Leukocyte Esterase Trace Urine RBC 5-10 Urine WBC 5-10 Ur Squamous Epith Cells 5-10 Urine Bacteria 1+ DS: Diagnosis - Discharge Diagnosis (1) Severe protein-calorie malnutrition Status: Chronic (2) Dementia Status: Chronic (3) Frequent falls Status: Chronic (4) Cachexia Status: Chronic Discharge Plan - Patient Discharge Instructions ACTIVITY: Continue current activity DIET: continue same diet Patient Instructions: Anorexia-Adult, DI for Muscle Weakness, DI for Altered Mental Status - Follow up Plan Follow up with: Ene Ureña APRN [Nurse Practitioner] - Disposition: Xfer Intermediate Care Fac Home Medications: Home Medications Medication Instructions Recorded Confirmed Type levothyroxine 50 mcg tablet 50 mcg PO DAILY 30 Days #30 11/26/17 09/15/19 History meclizine 25 mg tablet 25 mg PO TIDP PRN 11/26/17 09/15/19 History memantine 10 mg tablet 10 mg PO BID 30 Days #60 tab 11/01/18 09/15/19 Rx Propranolol HCl 10 mg PO BID 08/14/19 09/15/19 History Albuterol Sulfate [Albuterol HFA 2 puffs IH QIDP PRN 08/15/19 09/15/19 History Inhaler] Donepezil HCl [Aricept 5mg 5 mg PO DAILY 09/15/19 09/15/19 History Tablet] Mirtazapine [Remeron 15mg tablet] 7.5 mg PO HS 09/15/19 09/15/19 History Quetiapine Fumarate 25 mg PO BID 09/15/19 09/15/19 History Prescriptions/Medication Reconciliation: Continued levothyroxine 50 mcg tablet 50 mcg PO DAILY 30 Days #30 meclizine 25 mg tablet 25 mg PO TIDP PRN PRN Reason: Dizziness memantine 10 mg tablet 10 mg PO BID 30 Days #60 tab Propranolol HCl 10 mg PO BID Albuterol Sulfate [Albuterol HFA Inhaler] 2 puffs IH QIDP PRN PRN Reason: Shortness Of Breath Mirtazapine [Remeron 15mg tablet] 7.5 mg PO HS Donepezil HCl [Aricept 5mg Tablet] 5 mg PO DAILY Discontinued Quetiapine Fumarate 25 mg PO BID - Problem Reconciliation Problems Reviewed?: Yes
== END 2019-09-16 10:18 ==
LOC: 2ND
PROVIDERS: ADMIT Internal Medicine Adolescent Medicine; ATTEND Internal Medicine Adolescent Medicine
CPT/HCPCS: 71010; 71045; 80053; 81001; 83735; 85025; 97110; 97161; 97165; G0378